=== PATIENT | male | born 1970 | race Hispanic/Latino ===

== ENCOUNTER 2025-02-21 16:29 | Emergency (ER) | payer SELFPAY ==
[~2025-02-21 16:29] MED LIST: Iopamidol 300 61% 100 ML VIAL FS ONE
[2025-02-21 17:09] LABS: Glucose, Urine (Dipstick) >=1000 mg/dL (Negative); Leukocyte 500 (Negative); Protein, Urine (Dipstick) 15 mg/dl (Neg-Trace); Specific Gravity, Urine 1.015 (1.005-1.030)
[2025-02-21] MEDS ORDERED: Ketorolac Tromethamine 30 MG (1 mL) VIAL ONE (17:47)
[2025-02-21 17:49] LABS: Bacteria/HPF 1+ HPF (None Seen); CAUTI Indications for Culture Pelvic or flank pain; RBC/HPF 0-3 HPF (0-3); Urine Culture Reflex No No; Yeast-Budding 1+ HPF (None Seen)
[2025-02-21 18:07] LABS: #Basophils 0.14 10x3/uL (0.0-0.2); #Eosinophils 0.32 10x3/uL (0.0-0.5); #Monocytes 0.59 10x3/uL (0.0-1.1); #Neutrophils 5.17 10x3/uL (1.5-8.4); %Basophils 1.7 % (0.0-2.0); %Eosinophils 3.9 % (0.0-6.0); %Lymphocytes 23.6 % (18.0-47.0); %Monocytes 7.2 % (0.0-10.0); %Neutrophils 63.2 % (40.0-75.0); Hematocrit 46.3 % (38.8-50.0); Hemoglobin 16.0 g/dL (13.5-17.5); Mean Corpuscular Hemoglobin 30.4 pg (27.0-33.0); Mean Corpuscular Volume 88.0 fL (81.2-95.1); Platelet Count 221 10x3/uL (150-450); Red Blood Cell (RBC) Count 5.26 10x6/uL (4.32-5.72); White Blood Cell (WBC) Count 8.18 10x3/uL (3.5-10.5)
[2025-02-21 18:24] LABS: ALT (SGPT) 57 U/L (Less than 45); AST (SGOT) 38 U/L (11-34); Albumin 3.7 g/dL (3.1-4.5); Alkaline Phosphatase 152 U/L (40-110); Anion Gap 13 mmol/L (10-20); BUN (Urea Nitrogen) 15 mg/dL (8.4-25.7); Bilirubin, Total 0.3 mg/dL (0.3-1.2); Calc. Creatinine Clearance 0 mL/min (70-130); Calcium 8.9 mg/dL (7.8-10.44); Carbon Dioxide 21 mmol/L (22-29); Chloride 104 mmol/L (98-107); Globulin 3.4 g/dL (2.4-3.5); Potassium 4.1 mmol/L (3.5-5.1); Sodium 134 mmol/L (136-145)
[2025-02-21 18:26] LABS: Glucose 463 mg/dL (70-105)
[2025-02-21] MEDS ORDERED: cefTRIAXone (ROCEPHIN) 2 GM VIAL ONE (18:41)
[2025-02-21] MEDS ORDERED: cefTRIAXone (ROCEPHIN) 1 GM VIAL ONE (18:42)
== END 2025-02-21 19:25 | disposition home or self-care (01) ==
LOC: CSHERS 16:29
DX: N39.0 Urinary tract infection, site not specified (principal); E11.9 Type 2 diabetes mellitus without complications; L40.9 Psoriasis, unspecified; F17.200 Nicotine dependence, unspecified, uncomplicated
CPT/HCPCS: 74177; 80053; 81001; 85025; 96361; 96365; 96375; J0696; J1815; J1885; Q9967